=== PATIENT | female | born 1945 ===

== ENCOUNTER 2017-03-12 09:42 | Emergency (ER) | payer MEDICARE, OTHER ==
[2017-03-12 09:42] VITALS: BMI 24.2
[2017-03-12 09:49] VITALS: BP 165/81; PULSE 74; RESP 18; TEMP 98.9; O2SAT 96
--- NOTE | 2017-03-12 10:35 | C.PDOC ---
History Of Present Illness 71 y/o female presents to the ED with complaints of swelling and pain to left jaw since yesterday. Pt has been taking OTC pain medications without improvement. Pain radiates to her head. She denies fever, chills, sore throat, cough, rash, difficulty swallowing or any other complaints. Time Seen by Provider: 03/12/17 09:50 Chief Complaint (Nursing): Medical Clearance History Per: Patient History/Exam Limitations: no limitations Onset/Duration Of Symptoms: Hrs Current Symptoms Are (Timing): Still Present Severity: Moderate Recent travel outside of the [place]: No Past Medical History Reviewed: Historical Data, Nursing Documentation, Vital Signs Vital Signs: Last Vital Signs Temp 98.9 F 03/12/17 09:49 Pulse 74 03/12/17 09:49 Resp 18 03/12/17 09:49 BP 165/81 H 03/12/17 09:49 Pulse Ox 96 03/12/17 11:05 - Medical History PMH: Colonic Polyps, Depression, Hypercholesterolemia Family History: States: Unknown Family Hx - Social History Hx Alcohol Use: No Hx Substance Use: No Review Of Systems Except As Marked, All Systems Reviewed And Found Negative. Constitutional: Negative for: Fever, Chills ENT: Positive for: Other (pain and swelling to left jaw). Negative for: Throat Pain, Throat Swelling Respiratory: Negative for: Cough Skin: Negative for: Rash Physical Exam - Physical Exam Appears: Well, Non-toxic, In Acute Distress (mild pain) Skin: Normal Color, Warm, Dry, No Rash Head: Atraumatic, Normacephalic, Swelling (left mandible) Eye(s): bilateral: Normal Inspection, PERRL, EOMI Ear(s): Bilateral: Normal Nose: Normal Oral Mucosa: Moist, No Drooling, No Trismus Tongue: Normal Appearing, No Swelling, No Lesions Lips: Normal Appearing, No Swelling, No Lesions Teeth: Caries Gingiva: Other (edema to left lower gum line, with possible abscess) Throat: Normal, No Erythema Neck: Normal, Normal ROM, No Midline Cervical Tenderness, No Paracervical Tenderness, Supple Lymphatic: No Adenopathy Cardiovascular: Rhythm Regular, No Friction Rub, No Murmur Respiratory: Normal Breath Sounds, No Decreased Breath Sounds, No Accessory Muscle Use, No Rales, No Rhonchi, No Stridor, No Wheezing Extremity: Normal ROM, No Tenderness Neurological/Psych: Oriented x3, Normal Speech, Normal Cranial Nerves, Normal Motor, Normal Sensation ED Course And Treatment O2 Sat by Pulse Oximetry: 96 (room air) Pulse Ox Interpretation: Normal Medical Decision Making Medical Decision Makin71 y/o female presents to the ED with complaints of swelling and pain to left jaw since yesterday. Based on history and exam, pt likely has a dental abscess. Pt medicated with tylenol and clindamycin po. On re-evaluation, pt is in no acute distress, no drooling, able to speak in full sentences. She states that she feels comfortable going home. Pt advised to also f/u with her dentist in 2 days without fail for re-evaluation. Advised to return to the ER at any time for any new or worsening symptoms. Disposition - Disposition Referrals: Ady Murrieta Ernestina [Outside] Disposition: HOME/ ROUTINE Disposition Time: 10:33 Condition: STABLE Additional Instructions: Follow up with the dentist in 2 days without fail for re-evaluation. Take medication as prescribed. Return to the ER at any time for any new or worsening symptoms. 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 - Scribe Statement The provider has reviewed the documentation as recorded by the Luis Weaver All medical record entries made by the Luis were at my direction and personally dictated by me. I have reviewed the chart and agree that the record accurately reflects my personal performance of the history, physical exam, medical decision making, and the department course for this patient. I have also personally directed, reviewed, and agree with the discharge instructions and disposition.
== END 2017-03-12 10:56 | disposition home or self-care (01) ==
LOC: C.ER 09:42
DX: K04.7 Periapical abscess without sinus (principal)

== ENCOUNTER 2017-10-06 08:24 | Emergency (ER) | payer MEDICARE, OTHER ==
[2017-10-06 08:25] VITALS: BMI 24.2
[2017-10-06 08:38] VITALS: O2SAT 96
[2017-10-06] MEDS ORDERED: Sodium Chloride 0.9% 500 ML IV ONE (09:26)
[2017-10-06] MEDS ORDERED: Sodium Chloride 0.9% 1,000 ML ONE (09:38)
--- NOTE | 2017-10-06 09:42 | RAD ---
PROCEDURE: CHEST RADIOGRAPH, 1 VIEW HISTORY: COUGH COMPARISON: Comparison made with prior chest radiograph dated 06/12/2011. FINDINGS: LUNGS: Increased/coarsened interstitial markings with scattered peribronchial cuffing changes. Rule out sequela of reactive/inflammatory airway disease or viral illness. Additionally, mild biapical pleural thickening with what may represent calcified granuloma right lung apex. No focal consolidation. PLEURA: No pneumothorax or pleural fluid seen. CARDIOVASCULAR: Normal. OSSEOUS STRUCTURES: No significant abnormalities. VISUALIZED UPPER ABDOMEN: Normal. OTHER FINDINGS: None. IMPRESSION: Increased/coarsened interstitial markings with scattered peribronchial cuffing changes. Rule out sequela of reactive/inflammatory airway disease or viral illness. Additionally, mild biapical pleural thickening with what may represent calcified granuloma right lung apex. No focal consolidation.
[2017-10-06 10:46] LABS: BASO % 0.3 % (0.0-2.0); EOS % 0.2 % (0.0-4.0); HEMOGLOBIN 15.2 g/dL (11.0-16.0); LYMPH # 1.7 K/uL (1.0-4.3); LYMPH % 28.2 % (20.0-40.0); MEAN CELL VOLUME 88.5 fL (81.0-99.0); MEAN CORPUSCULAR HEMOGLOBIN 30.2 pg (27.0-31.0); MEAN CORPUSCULAR HGB CONC 34.1 g/dL (33.0-37.0); MEAN PLATELET VOLUME 9.7 fL (7.2-11.7); MONO # 0.5 K/uL (0.0-0.8); MONO % 8.2 % (0.0-10.0); NEUT # 3.7 K/uL (1.8-7.0); NEUT % 63.1 % (50.0-75.0); NRBC % 0.2 % (0.0-2.0); RBC 5.02 Mil/uL (3.80-5.20); RED CELL DISTRIBUTION WIDTH 13.2 % (11.5-14.5); WHITE BLOOD COUNT 5.9 K/uL (4.8-10.8)
[2017-10-06 11:05] LABS: ALB/GLOB RATIO 1.1 (1.0-2.1); ALBUMIN 4.4 g/dL (3.5-5.0); ALT/SGPT 26 U/L (9-52); AST/SGOT 41 U/L (14-36); BLOOD UREA NITROGEN 15 mg/dL (7-17); CALCIUM 9.6 mg/dl (8.6-10.4); GFR AFRICAN-AMERICAN > 60; GFR NON-AFRICAN AMERICAN > 60; LIPASE 100 U/L (23-300)
--- NOTE | 2017-10-06 11:37 | C.PDOC ---
History Of Present Illness 71 year old female presents to ED for evaluation of non-productive cough, shortness of breath, nausea, vomiting, lightheadedness, and generalized weakness since yesterday. Otherwise, denies chest pain, sore throat, ear pain, diarrhea, dysuria, or fever. Time Seen by Provider: 10/06/17 08:32 Chief Complaint (Nursing): Flu-like Symptoms History Per: Patient History/Exam Limitations: no limitations Onset/Duration Of Symptoms: Days Current Symptoms Are (Timing): Still Present Associated Symptoms: Cough, Nausea, Vomiting. denies: Neck Pain, Diarrhea Ear Symptoms: Bilateral: None Additional History Per: Patient Past Medical History Reviewed: Historical Data, Nursing Documentation, Vital Signs Vital Signs: Last Vital Signs Temp 98.4 F 10/06/17 08:30 Pulse 78 10/06/17 08:30 Resp 20 10/06/17 08:30 BP 147/90 10/06/17 08:30 Pulse Ox 96 10/06/17 11:46 - Medical History PMH: Colonic Polyps, Depression, Hypercholesterolemia Family History: States: Unknown Family Hx - Social History Hx Alcohol Use: No Hx Substance Use: No Review Of Systems Except As Marked, All Systems Reviewed And Found Negative. Constitutional: Positive for: Weakness. Negative for: Fever, Chills Cardiovascular: Positive for: Light Headedness. Negative for: Chest Pain, Palpitations Respiratory: Positive for: Cough, Shortness of Breath. Negative for: Sputum Gastrointestinal: Positive for: Nausea, Vomiting. Negative for: Abdominal Pain , Diarrhea, Hematemesis Genitourinary: Negative for: Dysuria, Frequency, Hematuria Musculoskeletal: Negative for: Back Pain Physical Exam - Physical Exam Appears: Non-toxic, No Acute Distress, Other (fatigued, mildly uncomfortable) Skin: Normal Color, Warm, Dry Head: Normacephalic Eye(s): bilateral: Normal Inspection Nose: Normal Oral Mucosa: Dry Throat: Normal, No Erythema, No Exudate, No Drooling Neck: Normal ROM, Supple Cardiovascular: Rhythm Regular, No Murmur Respiratory: No Accessory Muscle Use, No Rales, No Rhonchi, No Wheezing, Other ( Speaking in full sentences) Gastrointestinal/Abdominal: Soft, No Tenderness Extremity: Normal ROM, No Pedal Edema Neurological/Psych: Oriented x3, Normal Speech ED Course And Treatment - Laboratory Results Result Diagrams: 10/06/17 10:38 10/06/17 10:38 O2 Sat by Pulse Oximetry: 96 (RA) Pulse Ox Interpretation: Normal Progress Note: Blood work, CXR ordered and reviewed. Pt was given Zofran and IV fluids. On reassessment, patient is resting comfortably with no wheezing, chest pain, or retractions. Patient is alert and oriented x 3. Patient was advised to follow up with physician/clinic in 1-2 days and return to ED if symptoms worsen or persist. Disposition Counseled Patient/Family Regarding: Studies Performed, Diagnosis, Need For Followup, Rx Given - Disposition Referrals: Tato Richard MD [Staff Provider] - Disposition Time: 11:45 Additional Instructions: FOLLOW UP WITH YOUR DOCTOR/CLINIC IN 1-2 DAYS USE MEDICATIONS DIRECTED DRINK PLENTY OF FLUIDS RETURN TO EMERGENCY ROOM IF SYMPTOMS WORSEN SEGUIMIENTO CON LEARY MDICO / CLNICA EN 1-2 SANTOS USE MEDICAMENTOS SEGN LO INDICADO BEBER MUCHO LQUIDO REGRESE AL EARNEST DE EMERGENCIA SI LOS SNTOMAS EMPEORAN Prescriptions: Azithromycin [Zithromax] 250 mg PO DAILY #6 tab Benzonatate [Tessalon Perles] 100 mg PO BID PRN #15 sgl PRN Reason: Cough Ondansetron [Zofran Odt] 4 mg PO Q8 PRN #15 odt PRN Reason: Nausea/Vomiting Instructions: Upper Respiratory Infection (ED), Acute Nausea and Vomiting (ED) Forms: [employer] (Lao) Print Language: TURKISH - Clinical Impression Clinical Impression: Upper respiratory infection, Nausea and vomiting - Scribe Statement The provider has reviewed the documentation as recorded by the Luis Sultana All medical record entries made by the Scribelis were at my direction and personally dictated by me. I have reviewed the chart and agree that the record accurately reflects my personal performance of the history, physical exam, medical decision making, and the department course for this patient. I have also personally directed, reviewed, and agree with the discharge instructions and disposition.
[2017-10-06 11:49] VITALS: BP 148/83; PULSE 77; RESP 16; TEMP 98.2
== END 2017-10-06 12:13 | disposition home or self-care (01) ==
LOC: C.ER 08:24
DX: J06.9 Acute upper respiratory infection, unspecified (principal); R11.2 Nausea with vomiting, unspecified; E78.00 Pure hypercholesterolemia, unspecified
CPT/HCPCS: 71045; 80053; 83690; 85025; 96374; 99283; J2405; J7040